=== PATIENT | female | born 1940 | race Two or more races ===

== ENCOUNTER 2018-10-09 07:10 | Day surgery (SDC) | payer OTHER ==
[~2018-10-09 07:10] MED LIST: ATORVASTATIN CA20 MG PO; CLOPIDOGREL BIS75 MG PO; GRALISE600 MG PO; HYZAAR 100-251 EACH PO; LEVETIRACETAM PO; LOSARTAN-HCTZ1 EAC2 PO; [UNRECOGNIZED DRUG - OTHER] PO
== END 2018-10-09 17:40 | disposition home or self-care (01) ==
LOC: CIR.AMB 07:10
DX: K64.8 Other hemorrhoids (principal); K63.5 Polyp of colon